=== PATIENT | female | born 1945 | race Caucasian/White ===

== ENCOUNTER 2016-02-20 08:10 | Day surgery (SDC) | payer OTHER ==
[2016-02-20] MEDS ORDERED: TRIAMCINOLONE ACETONIDE 40 MG/ML VIAL ONE (08:31)
[2016-02-20] MEDS ORDERED: BUPIVACAINE 0.25% 10 ML SDV ONE (08:32)
[2016-02-20] MEDS ORDERED: DEXAMETHASONE 10 MG/ML VIAL ONE (08:32)
[2016-02-20] MEDS ORDERED: fentaNYL 100 MCG/2 ML INJ ONE (08:32)
[2016-02-20] MEDS ORDERED: MIDAZOLAM 2 MG/2 ML VIAL ONE (08:32)
[2016-02-20] MEDS ORDERED: NA BICARBONATE 50 MEQ/50 ML VIAL ONE (08:32)
[2016-02-20] MEDS ORDERED: IOPAMIDOL (ISOVUE-M 200) 20 ML VIAL IV ONE (08:33)
[2016-02-20] MEDS ORDERED: LIDOCAINE 1% 5 ML SDV ONE (08:39)
[2016-02-20] MEDS ORDERED: MIDAZOLAM 2 MG/2 ML VIAL IVP ONE (09:00)
--- NOTE | 2016-02-20 17:14 | DX ---
Fluoroscopy greater than one hour Indication: Two-level lumbar, transforaminal. Fluoroscopy time: 76.5 seconds. Dose: 30.25 mGy. Findings: Two spot fluoroscopic images were provided. There is a needle approach to the right L5 ner ve root and a central approach to the epidural space with contrast. Please see Dr. Kaykay Hodge's repor t for full surgical details. Impression: Fluoroscopy provided for epidural steroid injection.
--- NOTE | 2016-02-26 13:07 | GPN ---
[f rep st] PROCEDURE NOTE DATE OF PROCEDURE: 02/20/2016 TIME OF PROCEDURE: 9 a.m. HISTORY OF PRESENT ILLNESS: The patient presents for right L5-S1 transforaminal and L5-S1 interlaminar epidural steroid injections for the treatment of low back pain with radiculopathy. She has had these done in the past, most recently by Dr. Yakelin Sanchez on October 30, 2015. She is not taking any blood thinners or antibiotics and denies allergies to shellfish, latex, contrast dye, and iodine. She denies . PROCEDURE: Right L5-S1 transforaminal epidural steroid injection and L5-S1 transforaminal epidural steroid injection. DIAGNOSIS: Lumbar radiculopathy. SITE: Low back. PROVIDER: Kaykay Hodge MD ANESTHESIA: Local with Versed 4 mg and fentanyl 50 mcg IV. COMPLICATIONS: None. ESTIMATED BLOOD LOSS: Minimal. PREPROCEDURE CONSENT: The preprocedure consent was obtained after the risks, benefits, and alternatives of the procedure were discussed with the patient. The risks include, but are not limited to, nerve injury, spinal cord injury, paralysis, brain injury or stroke, muscle injury, infection, adverse medication effect, bleeding, increased pain, , and any other unforeseen consequences. The patient agreed and signed the consent for the procedure. VERBAL VERIFICATION AND TIMEOUT: Verbal verification of patient, site, and procedure was done. All present were in agreement. Please see nursing note for time of timeout. PROCEDURE NOTE: The patient was identified and placed in a prone position. Standard monitors were put in place. A right-sided fluoroscopic view was obtained with the superior articular process of S1 aligned with the pedicle of L5. The skin over the intended target site, the 6 o'clock position of the L5 pedicle, was prepped and draped in the usual sterile fashion with ChloraPrep and a fenestrated drape. Then using sterile technique, 2 mL of subcutaneous 1% lidocaine were instilled into the superficial soft tissues for local anesthesia over the above-stated region. The tip of a 22-gauge 3-1/2 inch spinal needle was advanced toward the 6 o'clock position under intermittent biplanar fluoroscopic guidance toward the anterior epidural space of the right L5 foramen. Confirmation of proper needle position was made with AP, oblique, and lateral fluoroscopic views. After negative aspiration for blood and cerebrospinal fluid, 0.5 mL of nonionic contrast agent was injected. Fluoroscopic imaging revealed a clear outline of the L5 spinal nerve with proximal spread of agent through the neural foramen into the epidural space without vascular uptake. Then, 3 mL of injectate containing 40 mg triamcinolone and preservative-free normal saline were administered slowly after negative aspiration. The patient experienced a transient paresthesia concordant with her typical area of pain. The spinal needle was re-styletted and removed. Then, attention was turned to the L5-S1 interspace. 2 mL of 1% lidocaine were injected subcutaneously over the target location. After adequate local analgesia was obtained, an 18-gauge 3-1/2 inch Tuohy needle was advanced via loss of resistance technique into the epidural space under intermittent biplanar fluoroscopic guidance. The position was confirmed to be correct with biplanar fluoroscopy. After negative aspiration for both blood and cerebrospinal fluid, 1 mL of nonionic contrast dye was injected. Good flow of dye was noted in the epidural space without vascular uptake. Then, 6 mL of a solution containing 40 mg of triamcinolone, 1 mL of 1% lidocaine, and 4 mL of preservative-free normal saline were injected slowly with intermittent negative aspiration. The patient reported feeling some pressure in her lower back and transient pain concordant with her usual distribution. The needle was re- styletted and removed. Vital signs were stable throughout the procedure. The patient tolerated the procedure well, was monitored in the recovery room with no apparent complications, and was discharged home in good condition with a ride. She experienced no side effects from sedation and was instructed not to drive, operate heavy machinery, or make any life-altering decision today. She was instructed to call our clinic with nonurgent concerns or 911 in an emergency. In particular, she was taught that new weakness or numbness, changes in bowel or bladder control, fever and swelling or redness over the injection site are all urgent concerns that would warrant calling 911 or going to an emergency care facility. She verbalized understanding and was discharged home with postprocedure instructions. ASSESSMENT AND PLAN: Right L5-S1 transforaminal and L5-S1 interlaminar epidural steroid injections done today without complication. It was noted that the patient's MRI of the lumbosacral spine is outdated and she will need a new one. She stated that she typically gets a prescription for #300 oxycodone after these procedures. However, I did not feel comfortable prescribing that quantity without a clinic evaluation, so I provided her with a prescription for oxycodone 5 mg #10 tabs. ADDENDUM: In the prior procedure done on October 30, 2015, the patient received 90% benefit. /[id number]/MODL MTDD
== END 2016-02-20 10:34 | disposition home or self-care (01) ==
LOC: FSGY 08:10
PROVIDERS: ATTEND Anesthesiology
PROC: 3E0S3BZ Introduction of Anesthetic Agent into Epidural Space, Percutaneous Approach (ICD-10-PCS; principal; 2016-02-20 09:00)
PROC: 3E0S33Z Introduction of Anti-inflammatory into Epidural Space, Percutaneous Approach (ICD-10-PCS; principal; 2016-02-20 09:00)
DX: M54.16 Radiculopathy, lumbar region (principal)
CPT/HCPCS: J2250; J3010; J3301; Q9966

== ENCOUNTER → 2016-03-18 | Outpatient (CLI) | payer OTHER ==
--- NOTE | 2016-03-18 16:38 | MR ---
MRI of the Lumbar Spine (Without Contrast) at 1247 Hours Clinical Indications: Radiculopathy. M54.16. Comparison: MRI March 2008. Technique: Sagittal and axial T1 and T2 and sagittal STIR MR sequences of the lumbar spine without co ntrast. Axial imaging from T10-S1. Findings: Lumbar vertebral bodies are of normal height without compression fractures. Conus medulla ris appears normal and ends at T12-L1. T10-T11: Moderate degenerative disk disease with ventral osteophytes and mild bilateral facet arthrop athy without central canal stenosis or neural foraminal stenosis. T11-T12: Moderate degenerative disk disease and mild bilateral facet arthropathy without stenosis. T12-L1: Moderate degenerative disk disease, mild disk bulge asymmetrically more prominent toward left , and mild bilateral facet arthropathy resulting in mild central canal stenosis and mild bilateral ne ural foraminal stenosis. L1-L2: Moderate degenerative disk disease with moderate loss of disk height, circumferential disk bul ge and osteophytes asymmetrically more prominent toward the left with mild bilateral facet arthropath y and mild degenerative retrolisthesis resulting in mild central canal stenosis and mild bilateral ne ural foraminal stenosis. Small superimposed 3 mm right neural foraminal disk herniation, protrusion, also noted. L2-L3: Severe degenerative disk disease, severe loss of disk height, endplate diskogenic changes, deg enerative grade 1 retrolisthesis, circumferential disk bulge and osteophytes, and moderate bilateral facet arthropathy resulting in moderate central canal stenosis, moderate to severe left neural forami nal stenosis, and [id number] right neural foraminal stenosis. L3-L4: Moderate degenerative disk disease with circumferential disk bulge and osteophytes and severe bilateral facet arthropathy resulting in degenerative grade 1 retrolisthesis, moderate central canal stenosis, and moderate to severe bilateral neural foraminal stenosis, right worse than left. L4-L5: Severe degenerative disk disease, severe loss of disk height, circumferential disk bulge and o steophytes asymmetrically more prominent toward the right with severe right facet arthropathy and mod erate left facet arthropathy resulting in [id number] central canal stenosis, moderate right lat eral recess stenosis, moderate to severe right neural foraminal stenosis, and mild left neural forami nal stenosis. L5-S1: Severe degenerative disk disease with severe loss of disk height, circumferential disk bulge a nd osteophytes, left paramedian disk herniation, protrusion, appearing smaller than previous study wi th moderate bilateral facet arthropathy resulting in moderate central canal stenosis, severe left lat eral recess stenosis with dorsal displacement of the left S1 nerve root, moderate to severe right ruba ral foraminal stenosis, and [id number] left neural foraminal stenosis. Impression: 1. Multilevel moderate to severe degenerative disk disease resulting in mild to moderate central tania l stenosis worse at L2-L3, L3-L4, L4-L5 and L5-S1 levels. 2. L5-S1: The left paramedian disk herniation identified in March 2008 appears smaller but persist s with moderate central canal stenosis, dorsal displacement of left S1 nerve root, severe degenerativ e disk disease and facet arthropathy. However, there is interval worsening of degenerative disk disea se at the L5-S1 level with almost complete loss of disk height. 3. Overall interval worsening of degenerative disk disease and facet arthropathy since 2008. 4. Please see above findings at specific disk levels.
== END ==
LOC: FIMAGING 12:30
PROVIDERS: ATTEND Anesthesiology
DX: M51.36 Other intervertebral disc degeneration, lumbar region (principal); M51.37 Other intervertebral disc degeneration, lumbosacral region; M51.27 Other intervertebral disc displacement, lumbosacral region; M46.97 Unspecified inflammatory spondylopathy, lumbosacral region; M48.06 Spinal stenosis, lumbar region

== ENCOUNTER → 2016-06-26 | Outpatient (CLI) | payer OTHER | LOC: FLAB 13:43 | PROVIDERS: ATTEND Physical Medicine & Rehabilitation Neuromuscular Medicine | DX: M41.56 Other secondary scoliosis, lumbar region (principal); M51.36 Other intervertebral disc degeneration, lumbar region ==

== ENCOUNTER → 2016-07-24 | Outpatient (CLI) | payer OTHER | LOC: FIMAGING 12:53 | PROVIDERS: ATTEND Orthopaedic Surgery | DX: M25.561 Pain in right knee (principal); M23.221 Derangement of posterior horn of medial meniscus due to old tear or injury, right knee; M22.41 Chondromalacia patellae, right knee; M25.461 Effusion, right knee; M23.41 Loose body in knee, right knee; M24.10 Other articular cartilage disorders, unspecified site ==

== ENCOUNTER → 2017-01-26 | Outpatient (CLI) | payer OTHER | LOC: FIMAGING 08:58 | PROVIDERS: ATTEND Internal Medicine | DX: Z12.31 Encounter for screening mammogram for malignant neoplasm of breast (principal) | CPT/HCPCS: G0202 ==

== ENCOUNTER 2017-03-16 07:42 | Emergency (ER) | payer OTHER ==
[2017-03-16 07:47] VITALS: RESP 18
--- NOTE | 2017-03-16 08:00 | EDPHY ---
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 She initially developed a wet cough on Thursday, 3 days ago. By Thursday she had associated rhinorrhea and nasal congestion and this morning woke with a fever of 100.8F. She has not taken anything for her fever. She has associated mild nausea, headache, and bilateral lower rib soreness. Her symptoms feel like prior pneumonia. No chest pain, shortness of breath, leg swelling, palpitations, vomiting, diarrhea, urinary complaints, lightheadedness. REVIEW OF SYSTEMS: Aside from elements discussed in the HPI, a comprehensive 10-point review of systems was reviewed and is negative. PAST MEDICAL HISTORY: Hypertension; Tino's - levothyroxine; takes metformin SOCIAL HISTORY: Nonsmoker. No alcohol use. 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 VITAL SIGNS: Reviewed by me GENERAL: Well-developed, well-nourished, resting comfortably in no respiratory distress. HEENT: Atraumatic. Eyes: No icterus, no injection. Mouth: moist mucous membranes. Mild erythema, no lesions. Neck: supple with no adenopathy. LUNGS: Clear, very diminished to auscultation bilaterally. Wet cough. Mildly dyspneic when speaking. CARDIAC: Tachycardic rate and rhythm, no rubs, murmurs or gallops. ABDOMEN: Soft, nontender, nondistended, bowel sounds normal. BACK: No CVA tenderness. EXTREMITIES: No trauma. No edema. Range of motion is normal throughout. NEURO: Alert and oriented, grossly nonfocal. SKIN: Warm and dry, no rash. PSYCHIATRIC: Normal mentation, no agitation. Portions of this note were transcribed by a medical billing and coding specialist. I personally performed a history, physical exam, medical decision making, and confirmed accuracy of information the transcribed note. ED Course: This is a 71 y/o female who presents with a 3-day history of a wet cough now with associated nasal congestion and fever. Her lung sounds are quite diminished on auscultation and she appears mildly dyspneic when speaking. She is tachycardic but afebrile here. Plan for IV, labs, flu swab, chest x-ray, and symptom management. Duo neb and 1L IV NS ordered. Chest x-ray: bronchitis Flu is negative. Reassessed patient and discussed work up. She is feeling improved after duo neb. Plan to treat with scripts for azithromycin and albuterol for bronchitis. Standard fever and URI care instructions given. Return precautions discussed. She is comfortable with plan for discharge. MDM: Differential diagnosis for the patient's cough was considered including but not limited to viral versus bacterial bronchitis, asthma, COPD, pulmonary emboli, upper respiratory infection, lower respiratory infection, and bronchospasm. - Data Points Imaging: I viewed and interpreted images myself Laboratory Results: Laboratory Results 03/16/17 08:32 03/16/17 08:32 Medications Given: Discontinued Medications Albuterol (Proventil Neb) 3 ml IH EDNOW ONE Stop: 03/16/17 08:10 Last Admin: 03/16/17 08:33 Dose: 3 ml Albuterol/Ipratropium (Duoneb) 3 ml IH EDNOW ONE Stop: 03/16/17 08:10 Last Admin: 03/16/17 08:33 Dose: 3 ml Sodium Chloride (Ns) 1,000 mls @ 0 mls/hr IV ONCE ONE; Wide Open PRN Reason: Protocol Stop: 03/16/17 08:10 Last Admin: 03/16/17 08:31 Dose: 1,000 mls Ibuprofen (Motrin) 600 mg PO EDNOW ONE Stop: 03/16/17 09:03 Last Admin: 03/16/17 09:08 Dose: 600 mg General Time Seen by Provider: 03/16/17 07:51 Initial Vital Signs: Initial Vital Signs Temperature (C) 36.8 C 03/16/17 07:44 Heart Rate 95 03/16/17 07:44 Respiratory Rate 18 03/16/17 07:44 Blood Pressure 118/100 H 03/16/17 07:44 O2 Sat (%) 95 03/16/17 07:44 O2 Delivery Mode Room Air Allergies/Adverse Reactions: No Known Allergies Allergy (Verified 03/16/17 07:43) Home Medications: Medication Instructions Recorded LEVOTHYROXINE SODIUM 02/04/16 Metformin HCl 02/04/16 SIMVASTATIN 02/04/16 VENLAFAXINE HCL 02/04/16 Valsartan 02/04/16 AZITHROMYCIN [Z-PACK] 250 - 500 mg PO DAILY #6 tab 03/16/17 Albuterol Hfa Anes Only [Proair 2 puffs IH QID #1 mdi 03/16/17 Hfa Anes Only] Spironolactone [Aldactone 25 MG 50 mg PO DAILY 03/16/17 (*)] Departure - Departure Disposition: Home, Routine, Self-Care Clinical Impression: RSV bronchitis Acute bronchitis Qualifiers: Bronchitis organism: RSV Qualified Code(s): J20.5 - Acute bronchitis due to respiratory syncytial virus Condition: Good Instructions: Albuterol (By breathing), Azithromycin (By mouth), Acute Bronchitis (ED) Additional Instructions: 1. Take azithromycin as prescribed. Be sure to complete the entire prescription. 2. Use albuterol as prescribed for cough or shortness of breath. 3. Use Tylenol and ibuprofen as directed for pain or fever over the next few days. 4. Follow up with your primary care provider for unimproved symptoms over the next 3-5 days. 5. Return to the ED for chest pain, difficulty breathing, or other worsening of condition. 6. Do not return to work until you are no longer running a fever. Cover your cough and wash your hands frequently to help prevent spread of your illness to others. Referrals: Bessy Tan MD [Primary Care Provider] - As per Instructions Stand Alone Forms: Work Excuse Prescriptions: Albuterol Hfa Anes Only [Proair Hfa Anes Only] 2 puffs IH QID #1 mdi AZITHROMYCIN [Z-PACK] 250 - 500 mg PO DAILY #6 tab Report Scribed for: Ely Dick Report Scribed by: Xin Ryan Date of Report: 03/16/17 Time of Report: 08:30
[2017-03-16] MEDS ORDERED: ALBUTEROL 3 ML DEYVIAL IH ONE (08:09)
[2017-03-16] MEDS ORDERED: IPRATROPIUM/ALBUTEROL 3 ML DEYVIAL IH ONE (08:09)
[2017-03-16] MEDS ORDERED: NS 1,000 ML IV ONE (08:09)
[2017-03-16 08:40] LABS: PLATELET COUNT 349 10^3/uL (150-400)
[2017-03-16] MEDS ORDERED: IBUPROFEN 600 MG TAB PO ONE (09:02)
[2017-03-16 09:13] VITALS: BP 128/68; PULSE 103; TEMP 98.8; O2SAT 93
== END 2017-03-16 09:17 | disposition home or self-care (01) ==
DX: J20.5 Acute bronchitis due to respiratory syncytial virus (principal); I10 Essential (primary) hypertension; E86.9 Volume depletion, unspecified; Z79.84 Long term (current) use of oral hypoglycemic drugs
CPT/HCPCS: 71046; 96360; 99284; J7613

== ENCOUNTER 2017-07-08 07:25 | Day surgery (SDC) | payer OTHER ==
[2017-07-08] MEDS ORDERED: LIDOCAINE 1% 2 ML INJ ID PRN (07:49)
[2017-07-08] MEDS ORDERED: LR 1,000 ML IV ONE (07:49)
--- NOTE | 2017-07-08 08:42 | PDANEPAE ---
ANE History of Present Illness Hx polyps ANE Past Medical History - Cardiovascular History Hx Hypertension: Yes Hx Arrhythmias: No Hx Chest Pain: No Hx Coronary Artery / Peripheral Vascular Disease: No Hx CHF / Valvular Disease: No Hx Palpitations: No Cardiovascular History Comment: pcp monitors bp meds - Pulmonary History Hx COPD: No Hx Asthma/Reactive Airway Disease: No Hx Recent Upper Respiratory Infection: No Hx Oxygen in Use at Home: No Hx Sleep Apnea: No Sleep Apnea Screening Result - Last Documented: Negative - Neurologic History Hx Cerebrovascular Accident: No Hx Seizures: No Hx Dementia: No - Endocrine History Hx Diabetes: No Endocrine History Comment: hypothyroidism. hashimotos- takes metformin - Renal History Hx Renal Disorders: No - Liver History Hx Hepatic Disorders: No - Neurological & Psychiatric Hx Hx Neurological and Psychiatric Disorders: No - Cancer History Hx Cancer: No - Congenital Disorder History Hx Congenital Disorders: No - GI History Hx Gastrointestinal Disorders: No Gastrointestinal History Comment: goes every 3 yrs for colonoscopy for polyps - Other Health History Other Health History: none - Chronic Pain History Chronic Pain: Yes (back pain right more than left) - Surgical History Prior Surgeries: cataract. hysterectomy. breast implants and removal. steroid shots to spine 2 x a year. stem cell injection ANE Review of Systems Review of Systems: - Exercise capacity METS (RN): 5 METS ANE Patient History - Allergies Allergies/Adverse Reactions: No Known Allergies Allergy (Verified 07/01/17 17:14) - Home Medications Home Medications: LEVOTHYROXINE SODIUM 02/04/16 [Last Taken 07/08/17 05:15] Metformin HCl 02/04/16 [Last Taken 07/07/17 08:00] VENLAFAXINE HCL 02/04/16 [Last Taken 07/07/17 11:30] Valsartan 02/04/16 [Last Taken 07/08/17 05:15] Spironolactone [Aldactone 25 MG (*)] 03/16/17 [Last Taken 07/07/17 12:00] Cholecalciferol (Vitamin D3) 07/01/17 [Last Taken Unknown] Fish Oil [place]-3 Softgel 07/01/17 [Last Taken 07/01/17] Multivitamins 07/01/17 [Last Taken 07/01/17] Vitamin C 07/01/17 [Last Taken 07/01/17] - NPO status NPO Since - Liquids (Date): 07/07/17 NPO Since - Liquids (Time): 21:00 NPO Since - Solids (Date): 07/07/17 NPO Since - Solids (Time): 08:00 - Anes Hx Anes Hx: no prior problems - Smoking Hx Smoking Status: Former smoker - Family Anes Hx Family Hx Anesthesia Complications: None ANE Labs/Vital Signs - Vital Signs Blood Pressure: 125/67 Heart Rate: 79 Respiratory Rate: 16 O2 Sat (%): 91 Height: 175.26 cm Weight: 90.718 kg ANE Physical Exam - Airway Neck exam: FROM Mallampati Score: Class 2 Mouth exam: normal dental/mouth exam - Pulmonary Pulmonary: no respiratory distress - Cardiovascular Cardiovascular: regular rate and rhythym - ASA Status ASA Status: II ANE Anesthesia Plan Anesthesia Plan: MAC
[2017-07-08] MEDS ORDERED: PROPOFOL 200 MG/20 ML VIAL ONE ×3 (08:45→09:07)
[2017-07-08] MEDS ORDERED: INDOMETHACIN 50 MG SUPP PR PRN (08:49)
--- NOTE | 2017-07-08 08:49 | PDGENHP ---
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 PsurgHx: cataracts, breast implants Relevant Physical Exam: HEENT: anicteric. CV: RRR +s1s2. Lungs: CTAB. Abd: soft, nt, + BS Cardiorespiratory Assessment: ASA 2
[2017-07-08] MEDS ORDERED: NS 500 ML IV SCH (09:00)
[2017-07-08] MEDS ORDERED: NALOXONE HCL 0.4 MG/ML INJ IVP PRN (09:15)
--- NOTE | 2017-07-08 09:35 | POSTANESTH ---
Post Anesthetic Evaluation Cardiovascular Status: Similar to Pre-Op Cond Respiratory Status: Similar to Pre-op Cond. Level of Consciousness/Mental Status: Can Participate in Eval Pain Control: Adequate, Prn Tx Ordered Nausea/Vomiting Control: Adequate, Prn Tx Ordered Complications Possibly Related to Anesthesia: None Noted
--- NOTE | 2017-07-08 09:47 | GIREPORT ---
[facility] Surgical Services - Endoscopy Department Patient Name: Divya Muñoz Procedure Date: 07/08/2017 8:50 AM Patient Type: Outpatient Attending MD/ ER Physician: Wild Arreola MD Procedure: Colonoscopy Indications: High risk colon cancer surveillance: Personal history of colonic polyps Patient Profile: 71 year old female with a history of a complex IC valve poly presents f or surveillance colonoscopy. Providers: Wild Arreola MD Medicines: Monitored Anesthesia Care Complications: No immediate complications. Estimated blood loss: Minimal. Description of Procedure: After obtaining informed consent, the scope was passed under direct vis ion. Throughout the procedure, the patient's blood pressure, pulse, and oxyg en saturations were monitored continuously. The Colonoscope with irrigatio n channel was introduced through the anus and advanced to the terminal il eum. The colonoscopy was performed without difficulty. The patient tolerated the procedure well. The quality of the bowel preparation was good. The term inal ileum, ileocecal valve, appendiceal orifice, and rectum were photograph ed. Findings: The perianal exam findings include non-thrombosed internal hemorrhoids. A 3 mm polyp was found in the cecum. The polyp was sessile. The polyp w as removed with a cold snare. Resection and retrieval were complete. Many diverticula were found in the sigmoid colon. Estimated Blood Loss: Estimated blood loss was minimal. Post Op Diagnosis: - Non-thrombosed internal hemorrhoids found on perianal exam. - One 3 mm polyp in the cecum, removed with a cold snare. Resected and retrieved. - Diverticulosis in the sigmoid colon. Recommendation: - Discharge patient to home (with escort). - Resume previous diet. - Continue present medications. - Repeat colonoscopy in 2 years for surveillance. - Await pathology results. - Use fiber, for example Citrucel, Fibercon, Konsyl or Metamucil. - Thank you for allowing me to participate in the care of your patient. Attending Participation: I personally performed the entire procedure. Wild Arreola MD Wild Arreola MD 07/08/2017 9:47:00 AM This report has been signed electronicallyWild Arreola MD Number of Addenda: 0 Note Initiated On: 07/08/2017 8:50 AM Total Procedure Duration Time 0 hours 27 minutes 49 seconds [email or web address]
[2017-07-08 10:21] VITALS: BP 101/44
== END 2017-07-08 10:33 | disposition home or self-care (01) ==
LOC: FSGY 07:25
PROVIDERS: ATTEND Internal Medicine Gastroenterology
PROC: 0DBE8ZX Excision of Large Intestine, Via Natural or Artificial Opening Endoscopic, Diagnostic (ICD-10-PCS; principal; 2017-07-08 09:00)
DX: Z12.11 Encounter for screening for malignant neoplasm of colon (principal); K57.30 Diverticulosis of large intestine without perforation or abscess without bleeding; Z87.19 Personal history of other diseases of the digestive system; E06.3 Autoimmune thyroiditis; Z90.710 Acquired absence of both cervix and uterus; Z79.84 Long term (current) use of oral hypoglycemic drugs
CPT/HCPCS: J2704

== ENCOUNTER 2018-02-22 08:27 | Inpatient (IN) | payer OTHER ==
[~2018-02-22 08:27] MED LIST: ROPIVACAINE 0.2% 80 MG, EPINEPHrine 0.2 MG, KETOROLAC TROMETHAMINE 30 MG in SYRINGE 0 ML IU ONE; TRANEXAMIC ACID 3,000 MG in NS (SYRINGE) 50 ML IRR ONE; TRANEXAMIC ACID 3,000 MG/50 ML BAG IRR ONE; ceFAZolin 1 GM/5 ML SYR ONE
[2018-02-22] MEDS ORDERED: FAMOTIDINE 20 MG TAB PO ONE (08:43)
[2018-02-22] MEDS ORDERED: ACETAMINOPHEN 325 MG TAB PO ONE (08:43)
[2018-02-22] MEDS ORDERED: ceFAZolin 2 GM/DEXTROSE 100 ML IV ONE (08:43)
[2018-02-22] MEDS ORDERED: DEXAMETHASONE 4 MG/ML VIAL IVP ONE (08:43)
[2018-02-22] MEDS ORDERED: LR 1,000 ML IV ONE (09:11)
[2018-02-22] MEDS ORDERED: MIDAZOLAM 2 MG/2 ML VIAL IVP ONE ×2 (09:18→10:20)
--- NOTE | 2018-02-22 09:18 | PDANEPAE ---
ANE Past Medical History - Cardiovascular History Hx Hypertension: Yes Hx Arrhythmias: No Hx Chest Pain: No Hx Coronary Artery / Peripheral Vascular Disease: No Hx CHF / Valvular Disease: No Hx Palpitations: No Cardiovascular History Comment: pcp monitors bp meds - Pulmonary History Hx COPD: No Hx Asthma/Reactive Airway Disease: No Hx Recent Upper Respiratory Infection: No Hx Oxygen in Use at Home: No Hx Sleep Apnea: No Sleep Apnea Screening Result - Last Documented: Negative Pulmonary History Comment: Bronchitis with RSV - Neurologic History Hx Cerebrovascular Accident: No Hx Seizures: No Hx Dementia: No - Endocrine History Hx Diabetes: Yes Obesity: yes, mild Endocrine History Comment: hypothyroidism. hashimotos- takes synthroid. Type 2 DM on Metformin - Renal History Hx Renal Disorders: No - Liver History Hx Hepatic Disorders: No - Neurological & Psychiatric Hx Hx Neurological and Psychiatric Disorders: No - Cancer History Hx Cancer: No - Congenital Disorder History Hx Congenital Disorders: No - GI History Hx Gastrointestinal Disorders: No Gastrointestinal History Comment: goes every 3 yrs for colonoscopy for polyps - Other Health History Other Health History: HOT FLASHES takes venlafaxine - Chronic Pain History Chronic Pain: Yes (back pain right more than left) - Surgical History Prior Surgeries: cataract. hysterectomy. breast implants and removal. steroid shots to spine 2 x a year 10/20/17. colonoscopy 07/03. stem cell injection. steroid shot to R knee ANE Review of Systems Review of Systems: - Exercise capacity METS (RN): 4 METS ANE Patient History - Allergies Allergies/Adverse Reactions: No Known Allergies Allergy (Verified 07/01/17 17:14) - Home Medications Home Medications: Levothyroxine [Synthroid 112 mcg (*)] 112 mcg PO DAILY06 #0 02/04/16 [Last Taken 02/22/18 05:15] Venlafaxine HCl [Venlafaxine 75MG (*)] 75 mg PO DAILY #0 02/04/16 [Last Taken ] metFORMIN HCL [Glucophage 500 mg (*)] 1,000 mg PO BIDMEAL #0 02/04/16 [Last Taken 02/20/18] Spironolactone [Aldactone 25 MG (*)] 50 mg PO DAILY 03/16/17 [Last Taken ] Ascorbic Acid [Vitamin C 500 mg (*)] 1,000 mg PO BID #0 05/16/18 [Last Taken ] Multivitamins [Multivitamin (*)] 1 each PO DAILY #0 07/01/17 [Last Taken ] [place]-3 Fatty Acids [Fish Oil 1000 mg (*)] 2,000 mg PO DAILY #0 07/01/17 [Last Taken 02/15/18] Aspirin [Aspirin 81mg (*)] 81 mg PO DAILY 01/27/18 [Last Taken 02/15/18] Atorvastatin Calcium [Lipitor 20 mg (*)] 20 mg PO HS 01/27/18 [Last Taken 1 Day Ago ~02/21/18] Cholecalciferol Vit D3 [Vitamin D3 (*)] 1,000 units PO DAILY 01/27/18 [Last Taken 02/15/18] Herbals/Supplements -Info Only 1 ea PO DAILY 01/27/18 [Last Taken 02/15/18] Latanoprost 0.005% [Xalatan 0.005% (*)] 1 drops EACHEYE HS 01/27/18 [Last Taken 1 Day Ago ~02/21/18] Losartan Potassium 100 mg PO DAILY 01/27/18 [Last Taken 02/22/18 05:15] - Smoking Hx Smoking Status: Former smoker - Family Anes Hx Family Hx Anesthesia Complications: None ANE Labs/Vital Signs - Vital Signs Height: 172.72 cm Weight: 91.626 kg ANE Physical Exam - Airway Neck exam: FROM Mallampati Score: Class 1 Mouth exam: normal dental/mouth exam - Pulmonary Pulmonary: clear to auscultation - Cardiovascular Cardiovascular: regular rate and rhythym - ASA Status ASA Status: II, III ANE Anesthesia Plan Anesthesia Plan: spinal Regional Anesthesia: adductor canal FNB
--- NOTE | 2018-02-22 09:51 | PDHPUP ---
History & Physical Update H&P update statement: This history and physical update is based on an assessment of the patient which was completed after admission or registration (within 24 hours), but prior to the surgery/procedure. H&P update: H&P reviewed & patient examined, no change in patient's condition since H&P completed
[2018-02-22] MEDS ORDERED: BUPIVACAINE/DEXTROSE 7.5MG/ML 2 ML SPINAL AMP SP ONE (10:14)
[2018-02-22] MEDS ORDERED: PROPOFOL/EMULSION 500 MG/50 ML BOTTLE IV ONE (10:14)
[2018-02-22] MEDS ORDERED: fentaNYL 100 MCG/2 ML INJ ONE ×3 (10:53→13:16)
[2018-02-22] MEDS ORDERED: LIDOCAINE 2% 5 ML SDV ONE ×2 (10:53→12:40)
[2018-02-22] MEDS ORDERED: DEXAMETHASONE 4 MG/ML VIAL ONE (10:54)
[2018-02-22] MEDS ORDERED: ePHEDrine SULFATE 25 MG/5 ML SYR ONE (11:00)
[2018-02-22] MEDS ORDERED: HYDROmorphONE/DILAUDID 2 MG/ML INJ ONE (11:19)
[2018-02-22] MEDS ORDERED: ROPIVACAINE HCL 150 MG/30 ML INJ ONE (12:28)
[2018-02-22] MEDS ORDERED: LABETALOL HCL 5 MG/ML 20 ML MDV ONE (12:30)
[2018-02-22] MEDS ORDERED: ONDANSETRON 4 MG/2 ML VIAL ONE ×2 (12:31→13:31)
[2018-02-22] MEDS ORDERED: LABETALOL HCL 5 MG/ML 20 ML MDV IVP PRN (12:39)
[2018-02-22] MEDS ORDERED: NALOXONE HCL 0.4 MG/ML INJ IVP PRN (12:39)
[2018-02-22] MEDS ORDERED: HYDROmorphONE/DILAUDID 2 MG/ML INJ IVP PRN (12:39)
[2018-02-22] MEDS ORDERED: PHENYLEPHRINE HCL 100 MCG/ML SYR IVP PRN (12:39)
[2018-02-22] MEDS ORDERED: DIAZEPAM 5 MG/ML 1 ML SYR IVP PRN (12:39)
[2018-02-22] MEDS ORDERED: MEPERIDINE 25 MG/0.5 ML AMP IVP PRN (12:39)
[2018-02-22] MEDS ORDERED: METOCLOPRAMIDE 10 MG/2 ML VIAL IVP PRN (12:39)
[2018-02-22] MEDS ORDERED: ONDANSETRON 4 MG/2 ML VIAL IVP PRN ×2 (12:39→13:04)
[2018-02-22] MEDS ORDERED: LR 500 ML IV PRN (12:39)
[2018-02-22] MEDS ORDERED: ALBUTEROL 3 ML DEYVIAL IH PRN (12:39)
[2018-02-22] MEDS ORDERED: PROMETHAZINE HCL 25 MG/ML INJ IVP PRN (12:39)
--- NOTE | 2018-02-22 12:39 | POSTANESTH ---
Post Anesthetic Evaluation Cardiovascular Status: Normal, Stable Respiratory Status: Normal, Stable Level of Consciousness/Mental Status: Can Participate in Eval Pain Control: Adequate, Prn Tx Ordered Nausea/Vomiting Control: Adequate, Prn Tx Ordered Complications Possibly Related to Anesthesia: None Noted
[2018-02-22] MEDS ORDERED: CYCLOBENZAPRINE 10 MG TAB PO PRN (13:04)
[2018-02-22] MEDS ORDERED: diphenhydrAMINE 25 MG CAP PO PRN (13:04)
[2018-02-22] MEDS ORDERED: ONDANSETRON DISINTEGRATING 4 MG TAB PO PRN (13:04)
[2018-02-22] MEDS ORDERED: DIPHENOXYLATE/ATROPINE LOMOTIL 1 TAB PO PRN (13:04)
[2018-02-22] MEDS ORDERED: BISACODYL 10 MG SUPP PR PRN (13:04)
[2018-02-22] MEDS ORDERED: MAGNESIUM HYDROXIDE 30 ML UDCUP PO PRN (13:04)
[2018-02-22] MEDS ORDERED: POLYETHYLENE GLYCOL 3350 17 GM PKT PO PRN (13:04)
[2018-02-22] MEDS ORDERED: LACTULOSE 20 GM/30 ML UDCUP PO PRN (13:04)
--- NOTE | 2018-02-22 13:11 | POSTOPPROG ---
Post Op Note Date of Operation: 02/22/18 Surgeon: Tanya Escalona Sales Representative Supervisor: Lizbet Love PA-C Anesthesiologist: Dr. Graves Anesthesia: GET(General Endotracheal) Pre-op Diagnosis: left knee osteoarthritis Post-op Diagnosis: left knee osteoarthritis Indication: left knee pain Procedure: left TKA Inf/Abcess present in the surg proc area at time of surgery?: No EBL: 50-100 Complications: none
--- NOTE | 2018-02-22 13:13 | SOAPPROG ---
SOAP Progress Note Assessment/Plan: Assessment/Plan: 72y/o female s/p left TKA - stable and doing well - post-op xray pending - PT/OT - active care system for DVT prevention; ASA start tomorrow - meets inpatient criteria; multiple medical comorbidities including hypertension and diabetes and advanced age - call with issues or concerns 02/22/18 13:11 Subjective: No pain currently Objective: Vital Signs Temp Pulse Resp BP Pulse Ox 36.7 C 71 16 117/72 94 02/22/18 10:16 02/22/18 10:16 02/22/18 10:16 02/22/18 10:16 02/22/18 10:16 NAD, no distress, waking from anesthesia moves legs bilaterally incision clean, dressed ICD10 Worksheet Patient Problems: Problems Problem Status Onset Acute bronchitis Acute RSV bronchitis Acute
[2018-02-22] MEDS: fentaNYL 100 MCG/2 ML INJ IVP PRN ×3 (13:21→13:35)
[2018-02-22] MEDS ORDERED: LR 1,000 ML IV SCH (13:30)
--- NOTE | 2018-02-22 14:57 | PDMN ---
Medical Necessity Medical necessity: [facility] S700 [place]plasty: OP: L TKA 72 yr old with mult comorbidities including advanced age, DM, HTn, overweight- BMI of 25-29 , former smoker
[2018-02-22] MEDS: oxyCODONE IR 5 MG TAB PO PRN (15:19)
--- NOTE | 2018-02-22 15:58 | GOP ---
DATE OF OPERATION: 02/22/2018 SURGEON: Tanya Escalona MD BONER MEAT: Lizbet Love, JANEL. ANESTHESIA: General with adductor canal block. PREOPERATIVE DIAGNOSIS: Severe osteoarthritis, left knee. POSTOPERATIVE DIAGNOSIS: Severe osteoarthritis, left knee. PROCEDURE PERFORMED: Left total knee arthroplasty. FINDINGS: Preoperative x-rays of the patient's left knee demonstrated severe osteoarthritis in the m edial and patellofemoral compartments. There was moderate degenerative change in the lateral compart ment. At the time of the surgery, a cemented Sam and Nephew Journey II total knee arthroplasty was performed. A size 5 posterior stabilized femoral component was implanted and a size 4 tibial base p late was utilized. Both of these were cemented. The femoral component was Oxinium coated. A 9 mm t hick polyethylene insert was placed in the metal backing of the tibia. This was a cross-linked polye thylene insert. A 35 mm round patellar button was cemented on the patella. Following implantation o f the components, the knee was taken through a range of motion and achieved full extension and 130 de grees of flexion on the table. The knee was stable to varus and valgus stressing both in extension a nd in 30 degrees of flexion. The patella tracked well in the trochlear groove. ESTIMATED BLOOD LOSS: Minimal. DESCRIPTION OF PROCEDURE: The patient was taken the operating room, placed in a supine position on [facility] operating table. Following induction of adequate general anesthesia, the leg and foot were preppe d and draped in the usual sterile manner. The patient received 2 g of IV Ancef. A spinal was attemp xiomy but was unsuccessful. The leg was elevated and exsanguinated and the tourniquet inflated to 275 mmHg. A midline incision was made extending from 2 fingerbreadths above the superior pole of the pat rosalino distally to the tibial tubercle. Incision was carried down through the subcutaneous tissue to [facility] retinaculum of the knee. A medial parapatellar arthrotomy was performed. The DeMayo leg almonte w as used throughout the procedure for positioning. The patella was everted and the thickness was meg ured. A 9 mm cut was taken from the back of the patella. The patella was then placed in the lateral gutter with a metal plate protecting the cut surface. The knee was flexed up and the distal femoral drill hole was made. Intramedullary referencing was utili zed for the distal femoral cut. A +2 cut was taken from the distal femur. The femur was then sized and a size 5 femoral component was chosen as the best fit. The size 5 cutting block was positioned o n the distal femur and the cutting block was shifted anteriorly. The anterior, posterior, and chamfe r cuts were made. The 5 trial was placed on the distal femur and a good fit was noted. The notch wa s cleared with the reamer followed by the box osteotome. The size 5 trial was then removed. The lol lipop was used to celina the tibia for the appropriate tibial cut. The knee was then flexed up and aga in intramedullary referencing was used for the tibial cut. The drill hole was placed in the region o f the tibial spines and then the intramedullary guide was inserted and the tibial cutting block was p ositioned appropriately. It was pinned and then the tibial cut was made. Care was taken to protect the structures in the posterior knee. Once the tibial cut had been made, the knee was extended and t he lamina entry level staff accountant was used to clear the meniscus and release the remaining fibers of the cruciate li gament. The lollipop was inserted, but the knee was still quite tight, so an additional 2 mm was nunu en off the tibia. At this point, the lollipop passed without difficulty both in flexion and extension, and the flexion and extension gaps were symmetrical. The tibia was then sized and a 4 trial was felt to be the best fit, so it was pinned and the keel punch was utilized. Trial reduction was performed with all the co mponents. The patella was drilled and then the patellar component was also trialed. Excellent fit w as noted with a 9 mm thick polyethylene. All the trial components were removed and all the bony surf aces were thoroughly irrigated and dried. The cement was mixed. The tibial component was cemented f irst followed by the femoral component in the patella. Excess cement was removed from around the edg es of the components. The knee was brought into extension and held while the cement hardened. Once the cement was hard, the knee was flexed up and the trial polyethylene was removed and replaced with a 9 mm thick cross-linked polyethylene insert. The wound was again irrigated out and then closed. Prior to implanting the components, the posterior knee was injected with joint cocktail and tranexami c acid. The retinaculum of the knee was then closed using #2 FiberWire in a [id number] fashion. The subcutaneous tissues were closed using 2-0 Vicryl. The skin was closed using sang. Addition al joint cocktail and tranexamic acid were utilized in the knee joint and the extensor mechanism. St erile dressings were applied. The patient tolerated the procedure well. There were no complications . Estimated blood loss minimal. Final sponge, needle counts were correct. The patient was transpor xiomy to the recovery room in good condition. /[id number]/MODL
--- NOTE | 2018-02-22 16:16 | ASMTCMCOM ---
CM Note CM Note Notes: Patient is s/p L TKA today. She is doing well and I anticipate d/c tomorrow. She has outpatient PT arranged on 03/03 but would like home PT until then. Referral sent to [facility]. CM will follow. Current CM Discharge plan: home with [facility] PT Date Signed: 02/22/2018 04:16 PM Electronically Signed By:Domenica Kim RN
[2018-02-22] MEDS: ACETAMINOPHEN 325 MG TAB PO SCH (17:36)
[2018-02-22] MEDS: metFORMIN HCL 500 MG TAB PO SCH (17:37)
[2018-02-22] MEDS: ceFAZolin 2 GM/DEXTROSE 100 ML IV SCH (17:40)
[2018-02-22] MEDS: FAMOTIDINE 20 MG TAB PO SCH (20:47)
[2018-02-22] MEDS: SENNOSIDES/DOCUSATE SODIUM TAB PO SCH (20:47)
[2018-02-22] MEDS: ASCORBIC ACID 500 MG TAB PO SCH (20:47)
[2018-02-22] MEDS ORDERED: LATANOPROST 0.005% 2.5 ML OPHT DROPS EACHEYE SCH (21:00)
[2018-02-22] MEDS ORDERED: ATORVASTATIN CALCIUM 20 MG TAB PO SCH (21:00)
[2018-02-23] MEDS: ACETAMINOPHEN 325 MG TAB PO SCH ×3 (00:13→11:40)
[2018-02-23] MEDS: ceFAZolin 2 GM/DEXTROSE 100 ML IV SCH (02:39)
[2018-02-23] MEDS ORDERED: LEVOTHYROXINE 112 MCG TAB PO SCH (06:00)
[2018-02-23] MEDS: oxyCODONE IR 5 MG TAB PO PRN ×3 (06:11→15:05)
[2018-02-23] MEDS: FAMOTIDINE 20 MG TAB PO SCH (08:05)
[2018-02-23] MEDS: ASCORBIC ACID 500 MG TAB PO SCH (08:07)
[2018-02-23] MEDS: metFORMIN HCL 500 MG TAB PO SCH (08:07)
[2018-02-23] MEDS: SENNOSIDES/DOCUSATE SODIUM TAB PO SCH (08:08)
[2018-02-23] MEDS ORDERED: SPIRONOLACTONE 25 MG TAB PO SCH (09:00)
[2018-02-23] MEDS ORDERED: ASPIRIN 325 MG TAB PO SCH (09:00)
[2018-02-23] MEDS ORDERED: FERROUS SULFATE 325 MG TAB PO SCH (09:00)
[2018-02-23] MEDS ORDERED: LOSARTAN POTASSIUM 50 MG TAB PO SCH (09:00)
[2018-02-23] MEDS ORDERED: VENLAFAXINE HCL 75 MG TAB PO SCH (09:00)
[2018-02-23 12:25] VITALS: BP 91/53
--- NOTE | 2018-02-23 13:57 | PDIAF ---
- Diagnosis Diagnosis: left TKA Code Status: Full Code - Medication Management Discharge Medications: electronically signed and located in the Home Medication List. - Orders Services needed: Home Care, Physical Therapy Home Care Face to Face: I certify that this patient was under my care and that I had the required [id number] encounter meeting the encounter requirements on the discharge day. My findings support the fact that the patient is homebound as defined in Home Care Face to Face Continued: CMS Chapter 7 Medicare Benefits Manual 30.1.1 , The condition of the patient is such that there exists a normal inability to leave home and consequently, leaving home would require a considerable and taxing effort. Isolation Type: None Diet Recommendation: no restrictions on diet [place] Stockings Discontinue Date: continue active care system Wound Care Instructions: keep incision clean and dry Activity/Weight Bearing Restrictions: weight bear as tolerated Additional Instructions: - weight bear as tolerated, continue home exercises - follow-up on 03/08 for a recheck, sooner with any issues or changes - Follow Up Care Current Providers and Referrals: Bessy Tan MD [Primary Care Provider] -
[2018-02-23] MEDS ORDERED: PNEUMOC 13-VAL CONJ-DIP CRM/PF 0.5 ML SYR (PREVNAR 13) IM ONE (15:04)
--- NOTE | 2018-02-23 16:08 | ASMTLACE ---
[place] Length of stay for Answers: 2 days current admission Acuity / Level of Answers: Yes Care: Did the patient have an inpatient admission? Comorbidities - select Answers: Coronary Artery Disease all that apply Diabetes (uncontrolled or controlled) Other Notes: hypothyroidism # of Emergency department Answers: 0 visits in the last 6 months Social determinants Answers: Mental health diagnosis (anxiety, depression, pers onality disorders, etc.) Score: 12 Date Signed: 02/23/2018 04:08 PM Electronically Signed By:RUDY Jhaveri
--- NOTE | 2018-02-23 16:09 | ASMTCMCOM ---
CM Note CM Note Notes: Pt medically stable for d/c with [facility] PT. Orders to be obtained via [employer]. Date Signed: 02/23/2018 04:08 PM Electronically Signed By:RUDY Jhaveri
--- NOTE | 2018-02-23 16:36 | ASDISCHSUM ---
Discharge Information Plan Status:Home with Home Health Medically Cleared to Leave: Discharge Date:02/23/2018 03:58 PM CM D/C Disposition: ADT D/C Disposition:Home Health Service Projected Discharge Date:02/23/2018 11:00 AM Transportation at D/C: Discharge Delay Reason: Follow-Up Date:02/23/2018 11:00 AM Discharge Slot: Final Diagnosis: Placement Information Referral Type:*Home Health Care Services Referral ID:[id number] Provider Name:[facility] Address 1:[address] Address 2: City:[place] Selection Factors: State:[place] Patient Contact Information Contact Name:ANNIKA Relationship: Address:[address] City:[place] Alternate Phone: State/Zip Code:[place] [address] Email: Financial Information Financial Class:Medicare Advantage Plans Primary Plan Desc:[facility] [employer] Primary Plan Number:[id number] Secondary Plan Desc: Secondary Plan Number: Assessment Information LACE LACE Length of stay for Answers: 2 days current admission Acuity / Level of Answers: Yes Care: Did the patient have an inpatient admission? Comorbidities - select Answers: Coronary Artery Disease all that apply Diabetes (uncontrolled or controlled) Other Notes: hypothyroidism # of Emergency department Answers: 0 visits in the last 6 months Social determinants Answers: Mental health diagnosis (anxiety, depression, pers onality disorders, etc.) Score: 12 Date Signed: 02/23/2018 04:08 PM Electronically Signed By:RUDY Jhaveri [facility] CM Progress Note CM Note CM Note Notes: Patient is s/p L TKA today. She is doing well and I anticipate d/c tomorrow. She has outpatient PT arranged on 03/03 but would like home PT until then. Referral sent to [facility]. CM will follow. Current Discharge plan: home with [facility] PT Date Signed: 02/22/2018 04:16 PM Electronically Signed By:Domenica Kim RN [facility] CM Progress Note CM Note CM Note Notes: Pt medically stable for d/c with [facility] PT. Orders to be obtained via [employer]. Date Signed: 02/23/2018 04:08 PM Electronically Signed By:RUDY Jhaveri Intervention Information
== END 2018-02-23 15:58 | disposition home health service (06) | DRG 470 ==
LOC: FSGY 08:27 → EDSTATUS 10:30 → F3N 14:25 → OBSVTOIN 14:25
PROVIDERS: ADMIT Orthopaedic Surgery; ATTEND Orthopaedic Surgery
PROC: 0SRD0J9 Replacement of Left Knee Joint with Synthetic Substitute, Cemented, Open Approach (ICD-10-PCS; principal; 2018-02-22 10:30)
DX: M17.0 Bilateral primary osteoarthritis of knee (principal); I10 Essential (primary) hypertension; E03.9 Hypothyroidism, unspecified; E11.9 Type 2 diabetes mellitus without complications; E66.3 Overweight; Z68.25 Body mass index [BMI] 25.0-25.9, adult; Z23 Encounter for immunization; Z87.891 Personal history of nicotine dependence
CPT/HCPCS: 97116-GP; 97161-GP; 97165-GO; 97530-GP; 97535-GO; C1713; G0009; J0171; J0690; J1100; J1170; J1885; J2250; J2405; J2704; J2795; J3010

== ENCOUNTER → 2018-04-30 | Outpatient (CLI) | payer OTHER | LOC: FIMAGING 12:08 | PROVIDERS: ATTEND Internal Medicine | DX: Z12.31 Encounter for screening mammogram for malignant neoplasm of breast (principal) ==